=== PATIENT | male | born 1985 | race Caucasian/White ===

== ENCOUNTER 2020-10-27 14:10 | Emergency (ER) | payer OTHER ==
[2020-10-27 14:22] VITALS: BP 128/98
[2020-10-27] MEDS ORDERED: ERYTHROMYCIN OPHTH OINT 1 GM TUBE RIGHTEYE STA (15:08)
--- NOTE | 2020-10-27 15:11 | ED Physician Documentation ---
History of Present Illness - Stated complaint Stated Complaint: RT EYE PX - Chief complaint Chief Complaint: Abd Pain - Additonal information Additional information: 35-year-old male presents emergency department for evaluation of acute right eye pain that began about 3 days ago. Reports waking up in the morning and having some mild discomfort and conjunctival injection but over the last 3 days is gotten progressively worse. He has some clear watering and tearing. 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 He does not wear corrective lenses. No loss of vision. No headaches. Nausea or vomiting. No history of similar in the past. Review of Systems Constitutional: reports: Reviewed and negative Eyes: reports: Photophobia, Discharge, Irritation. denies: Loss of vision, Decreased vision Ears: reports: Reviewed and negative Nose: reports: Reviewed and negative Throat: reports: Reviewed and negative Cardiac: reports: Reviewed and negative Respiratory: reports: Reviewed and negative GI: reports: Reviewed and negative PD PAST MEDICAL HISTORY - Allergies Allergies/Adverse Reactions: Allergies Allergy/AdvReac Type Severity Reaction Status Date / Time No Known Drug Allergies Allergy Verified 10/27/20 14:19 PD ED PE EXPANDED - General General: Alert, No acute distress - Eyes Eyes: PERRL, Normal accommodation, Injected conj/sclera, Anterior chambers clear, Normal fundi, Other (Right eye with generally injected conjunctiva and sclera. No exudate. No foreign body. Clear lens clear no hyphema. Sharp disc margins with funduscopic. No pain elicited with movement or palpation.). No: No eyelid FB (everted), Eyelid embedded FB, Conj/sclera FB, Subconj hemorrhage, Corneal abrasion, Corneal ulcer, Fluorescein uptake, Hyphema, Ant chamber cells/flare, Papilledema Results - Vitals Vitals: Vital Signs - 24 hr 10/27/20 10/27/20 14:16 14:19 Temperature 36.5 C 36.8 C Heart Rate 73 96 Respiratory 16 16 Rate Blood Pressure 121/75 128/98 H O2 Saturation 98 94 Oxygen O2 Source Room air PD MEDICAL DECISION MAKING - ED course Complexity details: considered differential, d/w patient ED course: 35-year-old male presents emergency department for evaluation of an injected and erythematous right eye for about 3 days. He does work with bronze powders. There was no fluorescein uptake. He has no loss of vision. The globe was soft and nontender. The lens was clear and limited funduscopic did not reveal any concerns with the optic disc. I suspect that he has a minor conjunctival injection that may have been worsened with rubbing of the eye. Erythromycin ointment will be ordered. He is advised to follow-up with ophthalmology on Friday. Return to the ER if not improving sooner Departure - Departure Disposition: Home, Self Care Clinical Impression: Conjunctivitis, right eye Qualifiers: Conjunctivitis type: acute Acute conjunctivitis type: unspecified Qualified Code(s): H10.31 - Unspecified acute conjunctivitis, right eye Condition: Stable Record reviewed to determine appropriate education?: Yes Comments: Clifford you have a conjunctivitis or inflammation of the outer lining of your eye. However we don't see any cuts or abrasions. Your lens looks clear and the back of your eye was also unremarkable. Unclear what is causing this redness and irritation but I suspect that a lubricating ointment with the antibiotic such as erythromycin will make it better. Please apply this to the right eye 3 times a day. If your eye is uncomfortable I recommend a cold compress but please don't rub it anymore. [place] Return to the ER if worsening before then.
== END 2020-10-27 15:20 | disposition home or self-care (01) ==
LOC: ED 14:10
DX: H10.31 Unspecified acute conjunctivitis, right eye (principal)
CPT/HCPCS: 99283; J3490; 80053; 83690; 85025

== ENCOUNTER 2020-11-16 17:47 | Emergency (ER) | payer OTHER ==
[2020-11-16 17:57] VITALS: BP 150/91
[2020-11-16] MEDS ORDERED: predniSONE 20 MG TABLET PO STA (18:08)
--- NOTE | 2020-11-16 18:09 | ED Physician Documentation ---
History of Present Illness - Stated complaint Stated Complaint: BUG BITES - Chief complaint Chief Complaint: General - Additonal information Additional information: 35-year-old male presents emergency department for evaluation of what are kimberly arent hives that began this a.m. He reports that he thought initially had a bug bite on his arm but as the days progressed he has developed welts on his arms torso and legs. He has no facial swelling, shortness of breath chest pain or dysphonia. He denies any history of food or medicine allergies. The only new food he is consumed the last 24 hours is a chihoula hot sauce. He reports that his son has a peanut allergy but the patient himself eats peanuts or peanut butter nearly every day. Review of Systems Constitutional: reports: Reviewed and negative Ears: reports: Reviewed and negative Nose: reports: Reviewed and negative Throat: reports: Reviewed and negative Cardiac: reports: Reviewed and negative Respiratory: reports: Reviewed and negative GI: reports: Reviewed and negative : reports: Reviewed and negative Skin: reports: Rash (Generalized urticaria) Neurologic: reports: Reviewed and negative PD PAST MEDICAL HISTORY - Present Medications Home Medications: Ambulatory Orders Medication Instructions Recorded Confirmed Famotidine [Pepcid] 20 mg PO BID 4 Days #8 tablet 11/16/20 predniSONE [Deltasone] 40 mg PO DAILY 4 Days #8 tablet 11/16/20 - Allergies Allergies/Adverse Reactions: Allergies Allergy/AdvReac Type Severity Reaction Status Date / Time No Known Drug Allergies Allergy Verified 10/27/20 14:19 PD ED PE EXPANDED - General General: Alert, No acute distress - HEENT HEENT: Atraumatic, Moist mucous membranes. No: Pharyngeal erythema, Swollen tonsils, Tonsillar exudate - Neck Neck: Supple w/out meningeal sx. No: Adenopathy - Cardiac Cardiac: Regular Rate, Radial strong equal, Pedal strong equal, Cap refill < 2 sec - Respiratory Respiratory: Clear to ausultation stephen. No: Distress, Labored - Abdomen Abdomen: Normal Bowel sounds. No: Tender to palpation - Derm Derm: Urticaria (Generalized urticaria on the torso arms and legs. Sparing of the palms and soles of the feet. No facial urticaria tongue or lip swelling) - Extremities Extremities: Normal. No: Deformity, Tenderness - Neuro Neuro: Alert and Oriented X 3, CNII-XII intact Results - Vitals Vitals: Vital Signs - 24 hr 11/16/20 17:53 Temperature 36.6 C Heart Rate 76 Respiratory 16 Rate Blood Pressure 150/91 H O2 Saturation 97 Oxygen O2 Source Room air PD MEDICAL DECISION MAKING - ED course Complexity details: considered differential, d/w patient ED course: 35-year-old male presents emergency department for evaluation of generalized urticaria that began this a.m. He is unclear what the insulting food or allergy could be due to. He does not have any tongue or airway involvement. No findings of angioedema or anapyylaxis. At this time the cause of the urticaria is not clear. He will be started on a 5-day course of prednisone as well as recommendation for Benadryl and Pepcid. He is advised close follow-up with his primary care provider for allergy testing. Emergent return precautions were discussed. Departure - Departure Disposition: 01 Home, Self Care Clinical Impression: Urticaria Condition: Stable Record reviewed to determine appropriate education?: Yes Instructions: Urticaria, ED Hives Ch Prescriptions: predniSONE [Deltasone] 40 mg PO DAILY 4 Days #8 tablet Famotidine [Pepcid] 20 mg PO BID 4 Days #8 tablet Comments: Clifford the skin changes you have are called urticaria or hives. It is usually due to an allergic reaction. It is not clear to us at this time what food you are reacting to. Your first dose of prednisone was given in the emergency department. Please fill the prednisone tomorrow at the pharmacy and take daily for the next 4 days. I recommend that you take Pepcid twice daily for at least 4 days as well as the Benadryl. Follow-up with [facility]. You would benefit from referral for allergy testing. If any point you have tongue or lip swelling, develop shortness of breath or chest pain then please return immediately to the ER.
== END 2020-11-16 18:22 | disposition home or self-care (01) ==
LOC: ED 17:47
DX: L50.9 Urticaria, unspecified (principal)
CPT/HCPCS: 99282; 99283; J7512

== ENCOUNTER 2020-11-20 13:25 | Emergency (ER) | payer OTHER ==
[2020-11-20 13:38] VITALS: BP 133/93
--- NOTE | 2020-11-20 14:47 | ED Physician Documentation ---
PD HPI SKIN - Stated complaint Stated Complaint: HIVES - Chief complaint Chief Complaint: Wound - History obtained from History obtained from: Patient - Additional information Additional information: Patient comes emergency department with chief complaint of ongoing hives. He began noticing the urticaria 4 days ago and at that time was seen and started on prednisone, Pepcid, and Benadryl. He states it might of helped a little bit, but the hives seem to have recurred and are worse now. He denies any swelling of his oropharyngeal structures. No difficulty breathing. No itching in his throat. Patient has never had an allergy to anything before and states there is nothing new in his diet or in the products he uses over the environment he is in. He states he went to the [place] [facility] to request an allergy test, but they told him they would not be able to do until his reaction calm down. No other complaints at this time. Review of Systems Ten Systems: 10 systems reviewed and negative Constitutional: reports: Reviewed and negative Eyes: reports: Reviewed and negative Ears: reports: Reviewed and negative Nose: reports: Reviewed and negative Throat: reports: Reviewed and negative Cardiac: reports: Reviewed and negative Respiratory: reports: Reviewed and negative GI: reports: Reviewed and negative : reports: Reviewed and negative Skin: reports: Rash Musculoskeletal: reports: Reviewed and negative Neurologic: reports: Reviewed and negative Psychiatric: reports: Reviewed and negative Endocrine: reports: Reviewed and negative Immunocompromised: reports: Reviewed and negative PD PAST MEDICAL HISTORY - Present Medications Home Medications: Ambulatory Orders Medication Instructions Recorded Confirmed diphenhydrAMINE [Benadryl] 25 mg PO Q4HR 11/20/20 11/20/20 hydrOXYzine HCL [Hydroxyzine HCl] 25 mg PO Q6HR PRN #20 tablet 11/20/20 methylPREDNISolone [Medrol Dose 1 each PO .PACKAGEINSTRUCTIONS 6 11/20/20 Pack] Days #1 each - Allergies Allergies/Adverse Reactions: Allergies Allergy/AdvReac Type Severity Reaction Status Date / Time No Known Drug Allergies Allergy Verified 11/20/20 13:38 Results - Vitals Vitals: Vital Signs - 24 hr 11/20/20 13:36 Temperature 36.6 C Heart Rate 91 Respiratory 16 Rate Blood Pressure 133/93 H O2 Saturation 99 Oxygen O2 Source Room air Departure - Departure Disposition: 01 Home, Self Care Clinical Impression: Urticaria Condition: Stable Instructions: ED Urticaria Prescriptions: hydrOXYzine HCL [Hydroxyzine HCl] 25 mg PO Q6HR PRN #20 tablet PRN Reason: Allergy Symptoms methylPREDNISolone [Medrol Dose Pack] 1 each PO .PACKAGEINSTRUCTIONS 6 Days #1 each Comments: It is not clear why you continue to have hives. Most likely, this is a continuation of an allergic reaction that started several days ago, and is just not calm down yet. It is also possible that you are having a continuous, low level exposure to something To which your immune system is no sensitized, and this is keeping the reaction going. You have been on the correct medications, and unfortunately, there is not any other medication category we can treat you with. We can extend your steroids into a taper, and can switch your other medications to other options within their same drug categories; however, the most helpful thing will probably be for you to get allergy testing done to figure out exactly what you are reacting to. It may also be that in the next few days, your immune system calms down and the reaction blows over on its own. At this point in time, there is no evidence of an emergent complication of your allergic reaction. Please continue to follow-up in [facility] as you plan to do. Discharge Date/Time: 11/20/20 14:53
== END 2020-11-20 14:53 | disposition home or self-care (01) ==
LOC: ED 13:25
DX: L50.9 Urticaria, unspecified (principal)
CPT/HCPCS: 99282